=== PATIENT | female | born 1930 | race Caucasian/White ===

== ENCOUNTER → 2017-04-16 | Outpatient (CLI) | payer MEDICARE ==
[~2017-04-16] MED LIST: AMLO5 PO; AMOCLA875 PO; ASCO500 PO; ASPI325 PO; ASPI81CH PO; ASPI81EC PO; CALCIT950 PO; CHOL10002 PO; CLOP75 PO; DOXY100 PO; DULO30 PO; ERGO50000 PO; FISH1000 PO; GABA100 PO; GABA300 PO; GABA600 PO; LEVSOD75 PO; LEVSOD88 PO; LOPE2C PO; MAGCHL64ER PO; METO50 PO; METO50ER PO; METPRE4DP PO; MYRBETRIQ25 MG PO; Ocuvite Softge1 EAC1 PO; PANT40 PO; PROBIOTIC1 EAC1 PO; Pulmicort Flex90 MCG IH; SIMV40 PO; UBID10 PO; VAGIFEM10 MCG VG; Ventolin Soln3 ML INH; Zofran4 MG PO
[2017-04-16 12:35] LABS: BASOPHILS ABSOLUTE AUTO 0.09 K/mm3 (0.00-0.23); BASOPHILS PERCENT AUTO 1 % (0-2); EOSINOPHILS ABSOLUTE AUTO 3.66 K/mm3 (0.00-0.68); EOSINOPHILS PERCENT AUTO 22 % (0-6); Hematocrit 43.7 % (33.0-51.0); Hemoglobin 14.1 g/dL (11.5-16.0); IMMATURE GRAN ABSOLUTE AUTO 0.08 K/mm3 (0.00-0.10); IMMATURE GRAN PERCENT AUTO 1 % (0-1); LYMPHOCYTES ABSOLUTE AUTO 2.27 K/mm3 (0.84-5.20); LYMPHOCYTES PERCENT AUTO 13 % (21-46); MONOCYTES ABSOLUTE AUTO 1.48 K/mm3 (0.16-1.47); MONOCYTES PERCENT AUTO 9 % (4-13); Mean Corpuscular HGB 28.1 pg (26.0-34.0); Mean Corpuscular HGB Conc 32.3 g/dL (31.5-36.5); Mean Corpuscular Volume 87 fL (80-100); Mean Platelet Volume 9.7 fL (9.1-12.4); NEUTROPHILS PERCENT AUTO 55 % (41-73); Platelet Count 363 K/mm3 (150-400); RDW Standard Deviation 43.8 fL (35.1-46.3); Red Blood Cell Count 5.02 M/mm3 (3.80-5.20); White Blood Cell Count 16.88 K/mm3 (4.00-11.30)
[2017-04-16 12:53] LABS: Alanine Aminotransfer (ALT/SGP 28 U/L (12-78); Albumin, Blood 3.9 g/dL (3.4-5.0); Albumin/Globulin Ratio 1.2 (0.8-1.8); Alk Phos 90 U/L (40-126); Anion Gap 10 mmol/L (6-16); Aspartate Aminotrans (AST/SGOT 27 U/L (12-37); Bilirubin, Total 0.9 mg/dL (0.1-1.0); Blood Urea Nitrogen 15 mg/dL (8-24); Bun/Creatinine Ratio 17.2 (12.0-20.0); CO2, Blood 32 mmol/L (21-32); Calcium, Blood 8.9 mg/dL (8.5-10.1); Chloride, Blood 97 mmol/L (98-108); Creatinine, Blood 0.87 mg/dL (0.40-1.00); Free Thyroxine 1.58 ng/dL (0.70-1.60); Globulin, Blood 3.2 g/dL (2.2-4.0); Glomerular Filtration Rate >60 (60-); Glucose, Blood 110 mg/dL (70-99); Potassium, Blood 3.4 mmol/L (3.5-5.5); Sodium, Blood 139 mmol/L (136-145); Thyroid Stimulating Hormone 4.944 uIU/mL (0.360-4.800); Total Protein, Blood 7.1 g/dL (6.4-8.2)
== END | disposition home or self-care (01) ==
LOC: LAB SHORT 12:27
PROVIDERS: General Practice
DX: R53.81 Other malaise (principal)
CPT/HCPCS: 80053; 83880; 84439; 84443; 85025

== ENCOUNTER → 2017-04-18 | Outpatient (CLI) | payer MEDICARE ==
[2017-04-18 11:18] LABS: BASOPHILS ABSOLUTE AUTO 0.07 K/mm3 (0.00-0.23); BASOPHILS PERCENT AUTO 1 % (0-2); EOSINOPHILS ABSOLUTE AUTO 3.31 K/mm3 (0.00-0.68); EOSINOPHILS PERCENT AUTO 31 % (0-6); Hematocrit 41.1 % (33.0-51.0); Hemoglobin 13.5 g/dL (11.5-16.0); IMMATURE GRAN ABSOLUTE AUTO 0.04 K/mm3 (0.00-0.10); IMMATURE GRAN PERCENT AUTO 0 % (0-1); LYMPHOCYTES ABSOLUTE AUTO 2.03 K/mm3 (0.84-5.20); LYMPHOCYTES PERCENT AUTO 19 % (21-46); MONOCYTES ABSOLUTE AUTO 1.22 K/mm3 (0.16-1.47); MONOCYTES PERCENT AUTO 11 % (4-13); Mean Corpuscular HGB 28.5 pg (26.0-34.0); Mean Corpuscular HGB Conc 32.8 g/dL (31.5-36.5); Mean Corpuscular Volume 87 fL (80-100); Mean Platelet Volume 9.2 fL (9.1-12.4); NEUTROPHILS ABSOLUTE AUTO 4.15 K/mm3 (1.96-9.15); NEUTROPHILS PERCENT AUTO 38 % (41-73); Platelet Count 333 K/mm3 (150-400); RDW Coefficient Variation 13.9 % (11.7-14.2); RDW Standard Deviation 43.8 fL (35.1-46.3); Red Blood Cell Count 4.73 M/mm3 (3.80-5.20); White Blood Cell Count 10.82 K/mm3 (4.00-11.30)
[2017-04-18 11:31] LABS: Alanine Aminotransfer (ALT/SGP 28 U/L (12-78); Albumin, Blood 3.6 g/dL (3.4-5.0); Alk Phos 81 U/L (40-126); Anion Gap 10 mmol/L (6-16); Aspartate Aminotrans (AST/SGOT 27 U/L (12-37); Blood Urea Nitrogen 14 mg/dL (8-24); Bun/Creatinine Ratio 17.1 (12.0-20.0); CO2, Blood 31 mmol/L (21-32); Chloride, Blood 97 mmol/L (98-108); Creatinine, Blood 0.82 mg/dL (0.40-1.00); Globulin, Blood 3.5 g/dL (2.2-4.0); Glomerular Filtration Rate >60 (60-); Glucose, Blood 94 mg/dL (70-99); Potassium, Blood 3.4 mmol/L (3.5-5.5); Sodium, Blood 138 mmol/L (136-145); Total Protein, Blood 7.1 g/dL (6.4-8.2)
[2017-04-19 08:55] LABS: Antinuclear Antibody Screen Negative (Negative)
== END ==
LOC: LAB SHORT 11:09
PROVIDERS: General Practice
DX: L03.119 Cellulitis of unspecified part of limb (principal); R60.0 Localized edema
CPT/HCPCS: 80053; 85025; 86038; 87070; 87205

== ENCOUNTER → 2017-05-12 | Outpatient (CLI) | payer OTHER | END | disposition home or self-care (01) | LOC: LAB SHORT 09:56 → PLD 09:56 | DX: L30.9 Dermatitis, unspecified (principal) | CPT/HCPCS: 88305 ==

== ENCOUNTER 2018-07-25 15:22 | Inpatient (IN) | payer OTHER ==
[~2018-07-25] VITALS: Ht 162.6 cm; Wt 54.9 kg
[~2018-07-25 15:22] MED LIST changes: -Aspir-Low81 MG PO; -Atarax10 MG PO; -BENEFIBER152 GM PO; -Bentyl20 MG PO; -CETI5 PO; -CYAN500 PO; -CYCL10 PO; -Clobetasol Emol15 GM TOP; -FISH OIL 1,0001 EAC1; -FURO20 PO; -HYDPAM25 PO; -MAGOXI400; -MELO7.5 PO; -NITR.4SL SL; -ONDA4ODT MM; -POTCHL10ER PO; -PROBIOTIC1 EAC4; -Pulmicort Flex90 MCG INH; -Pulmicort0.5 MG/2 M; -ROSU10TA PO; -SPIR25 PO; -TRIA15CR3 TOP; -TYLENOL325 MG PO; -UBID10; -VIBERZI75 MG PO
[2018-07-25] MEDS ORDERED: Clobetasol Emol15 GM TOP (15:41)
[2018-07-25] MEDS ORDERED: CYCL10 PO (15:42)
[2018-07-25] MEDS ORDERED: FURO20 PO (15:42)
[2018-07-25] MEDS ORDERED: Bentyl20 MG PO (15:42)
[2018-07-25] MEDS ORDERED: GABA300 PO (15:43)
[2018-07-25] MEDS ORDERED: ONDA4ODT MM (15:43)
[2018-07-25] MEDS ORDERED: HYDPAM25 PO (15:43)
[2018-07-25] MEDS ORDERED: MELO7.5 PO (15:43)
[2018-07-25] MEDS ORDERED: POTCHL10ER PO (15:44)
[2018-07-25] MEDS ORDERED: Pulmicort0.5 MG/2 M (15:44)
[2018-07-25] MEDS ORDERED: SPIR25 PO (15:44)
[2018-07-25] MEDS ORDERED: TYLENOL325 MG PO (15:45)
[2018-07-25] MEDS ORDERED: TRIA15CR3 TOP (15:45)
[2018-07-25] MEDS ORDERED: FISH OIL 1,0001 EAC1 (15:46)
[2018-07-25] MEDS ORDERED: BENEFIBER152 GM PO (15:46)
[2018-07-25] MEDS ORDERED: CETI5 PO ×2 (15:46→21:44)
[2018-07-25] MEDS ORDERED: VIBERZI75 MG PO ×2 (15:46→21:44)
[2018-07-25] MEDS ORDERED: PROBIOTIC1 EAC4 (15:47)
[2018-07-25] MEDS ORDERED: UBID10 (15:47)
[2018-07-25] MEDS ORDERED: CYAN500 PO (15:47)
[2018-07-25] MEDS ORDERED: MAGOXI400 (15:47)
[2018-07-25] MEDS ORDERED: Aspir-Low81 MG PO (16:07)
[2018-07-25] MEDS ORDERED: PANT40 PO (16:08)
[2018-07-25] MEDS ORDERED: LOPE2C PO (16:10)
[2018-07-25] MEDS ORDERED: Atarax10 MG PO (16:10)
[2018-07-25] MEDS ORDERED: METO50 PO (16:11)
[2018-07-25] MEDS ORDERED: Pulmicort Flex90 MCG INH (16:12)
[2018-07-25 16:17] LABS: International Normalized Ratio 0.97; Prothrombin Time Results 10.3 Sec (9.7-11.5)
[2018-07-26 03:12] LABS: BASOPHILS ABSOLUTE AUTO 0.05 K/mm3 (0.00-0.23); BASOPHILS PERCENT AUTO 1 % (0-2); EOSINOPHILS ABSOLUTE AUTO 0.26 K/mm3 (0.00-0.68); EOSINOPHILS PERCENT AUTO 3 % (0-6); Hemoglobin 10.9 g/dL (11.5-16.0); IMMATURE GRAN ABSOLUTE AUTO 0.04 K/mm3 (0.00-0.10); IMMATURE GRAN PERCENT AUTO 0 % (0-1); LYMPHOCYTES ABSOLUTE AUTO 3.46 K/mm3 (0.84-5.20); LYMPHOCYTES PERCENT AUTO 33 % (21-46); MONOCYTES PERCENT AUTO 15 % (4-13); Mean Corpuscular HGB Conc 31.1 g/dL (31.5-36.5); Mean Platelet Volume 10.8 fL (9.1-12.4); NEUTROPHILS ABSOLUTE AUTO 4.96 K/mm3 (1.96-9.15); NEUTROPHILS PERCENT AUTO 48 % (41-73); Platelet Count 229 K/mm3 (150-400); RDW Coefficient Variation 14.3 % (11.7-14.2); RDW Standard Deviation 45.6 fL (35.1-46.3); Red Blood Cell Count 4.03 M/mm3 (3.80-5.20); White Blood Cell Count 10.37 K/mm3 (4.00-11.30)
[2018-07-26 03:13] LABS: Mean Corpuscular Volume 87 fL (80-100)
[2018-07-26 03:28] LABS: Anion Gap 6 mmol/L (6-16); Blood Urea Nitrogen 13 mg/dL (8-24); Bun/Creatinine Ratio 17.8 (12.0-20.0); CO2, Blood 25 mmol/L (21-32); Chloride, Blood 105 mmol/L (98-108); Creatinine, Blood 0.73 mg/dL (0.40-1.00); Glomerular Filtration Rate >60 (60-); Glucose, Blood 102 mg/dL (70-99); Potassium, Blood 3.7 mmol/L (3.5-5.5); Sodium, Blood 136 mmol/L (136-145)
[2018-07-27 04:12] LABS: BASOPHILS ABSOLUTE AUTO 0.06 K/mm3 (0.00-0.23); BASOPHILS PERCENT AUTO 1 % (0-2); EOSINOPHILS ABSOLUTE AUTO 0.39 K/mm3 (0.00-0.68); EOSINOPHILS PERCENT AUTO 4 % (0-6); Hematocrit 35.4 % (33.0-51.0); Hemoglobin 11.1 g/dL (11.5-16.0); IMMATURE GRAN ABSOLUTE AUTO 0.03 K/mm3 (0.00-0.10); IMMATURE GRAN PERCENT AUTO 0 % (0-1); LYMPHOCYTES ABSOLUTE AUTO 2.81 K/mm3 (0.84-5.20); LYMPHOCYTES PERCENT AUTO 29 % (21-46); MONOCYTES ABSOLUTE AUTO 1.57 K/mm3 (0.16-1.47); MONOCYTES PERCENT AUTO 16 % (4-13); Mean Corpuscular HGB Conc 31.4 g/dL (31.5-36.5); Mean Corpuscular Volume 86 fL (80-100); Mean Platelet Volume 10.4 fL (9.1-12.4); NEUTROPHILS ABSOLUTE AUTO 4.71 K/mm3 (1.96-9.15); NEUTROPHILS PERCENT AUTO 49 % (41-73); Platelet Count 260 K/mm3 (150-400); RDW Coefficient Variation 14.5 % (11.7-14.2); RDW Standard Deviation 45.7 fL (35.1-46.3); Red Blood Cell Count 4.11 M/mm3 (3.80-5.20); White Blood Cell Count 9.57 K/mm3 (4.00-11.30)
[2018-07-27] MEDS ORDERED: ROSU10TA PO (11:58)
[2018-07-27] MEDS ORDERED: NITR.4SL SL (11:59)
[2018-07-27] MEDS ORDERED: CLOP75 PO (12:00)
== END 2018-07-27 13:34 | disposition home or self-care (01) | DRG 281 ==
LOC: ER 15:22 → PCU 18:21
PROVIDERS: Emergency Medicine; ADMIT Student in an Organized Health Care Education/Training Program
DX: I21.4 Non-ST elevation (NSTEMI) myocardial infarction (principal); E87.1 Hypo-osmolality and hyponatremia; N17.9 Acute kidney failure, unspecified; I50.42 Chronic combined systolic (congestive) and diastolic (congestive) heart failure; Z86.73 Personal history of transient ischemic attack (TIA), and cerebral infarction without residual deficits; E78.5 Hyperlipidemia, unspecified; I95.81 Postprocedural hypotension; I48.0 Paroxysmal atrial fibrillation; E03.9 Hypothyroidism, unspecified; G89.29 Other chronic pain; J44.9 Chronic obstructive pulmonary disease, unspecified; I11.0 Hypertensive heart disease with heart failure
CPT/HCPCS: 36415; 71260; 80048; 84484; 85025; 85610; 85730; 93005; 93010; 93306; 94760; 96365-59; 96366-59; 99285-25; J1644; J1650; J7030; Q9967

== ENCOUNTER → 2018-07-25 | Outpatient (CLI) | payer OTHER ==
[~2018-07-25] MED LIST changes: +Aspir-Low81 MG PO; +Atarax10 MG PO; +BENEFIBER152 GM PO; +Bentyl20 MG PO; +CETI5 PO; +CYAN500 PO; +CYCL10 PO; +Clobetasol Emol15 GM TOP; +FISH OIL 1,0001 EAC1; +FURO20 PO; +HYDPAM25 PO; -LEVSOD88 PO; +MAGOXI400; +MELO7.5 PO; +NITR.4SL SL; +ONDA4ODT MM; +POTCHL10ER PO; +PROBIOTIC1 EAC4; +Pulmicort Flex90 MCG INH; +Pulmicort0.5 MG/2 M; +ROSU10TA PO; +SPIR25 PO; +TRIA15CR3 TOP; +TYLENOL325 MG PO; +UBID10; +VIBERZI75 MG PO
[2018-07-25 14:11] LABS: BASOPHILS ABSOLUTE AUTO 0.05 K/mm3 (0.00-0.23); BASOPHILS PERCENT AUTO 0 % (0-2); EOSINOPHILS ABSOLUTE AUTO 0.18 K/mm3 (0.00-0.68); EOSINOPHILS PERCENT AUTO 2 % (0-6); Hematocrit 36.7 % (33.0-51.0); Hemoglobin 11.9 g/dL (11.5-16.0); IMMATURE GRAN ABSOLUTE AUTO 0.04 K/mm3 (0.00-0.10); IMMATURE GRAN PERCENT AUTO 0 % (0-1); LYMPHOCYTES ABSOLUTE AUTO 2.56 K/mm3 (0.84-5.20); LYMPHOCYTES PERCENT AUTO 23 % (21-46); MONOCYTES ABSOLUTE AUTO 1.67 K/mm3 (0.16-1.47); MONOCYTES PERCENT AUTO 15 % (4-13); Mean Corpuscular HGB Conc 32.4 g/dL (31.5-36.5); Mean Corpuscular Volume 83 fL (80-100); Mean Platelet Volume 10.7 fL (9.1-12.4); NEUTROPHILS ABSOLUTE AUTO 6.88 K/mm3 (1.96-9.15); NEUTROPHILS PERCENT AUTO 60 % (41-73); Platelet Count 255 K/mm3 (150-400); RDW Coefficient Variation 14.4 % (11.7-14.2); RDW Standard Deviation 43.5 fL (35.1-46.3); Red Blood Cell Count 4.41 M/mm3 (3.80-5.20); White Blood Cell Count 11.38 K/mm3 (4.00-11.30)
[2018-07-25 14:38] LABS: Albumin, Blood 3.2 g/dL (3.4-5.0); Albumin/Globulin Ratio 0.9 (0.8-1.8); Bilirubin, Total 1.4 mg/dL (0.1-1.0); Bun/Creatinine Ratio 16.3 (12.0-20.0); Calcium, Blood 8.5 mg/dL (8.5-10.1); Creatinine, Blood 0.92 mg/dL (0.40-1.00); Globulin, Blood 3.5 g/dL (2.2-4.0); Total Protein, Blood 6.7 g/dL (6.4-8.2)
[2018-07-25 15:16] LABS: Troponin I 6.912 ng/mL (0.000-0.040)
== END ==
LOC: LAB SHORT 14:04 → LAB EV 14:04
PROVIDERS: Emergency Medicine
DX: R07.9 Chest pain, unspecified (principal)
CPT/HCPCS: 80053; 83880; 84484; 85025

== ENCOUNTER 2018-09-16 19:18 | Emergency (ER) | payer OTHER ==
[~2018-09-16] VITALS: Ht 162.6 cm; Wt 59.0 kg
[~2018-09-16 19:18] MED LIST changes: +Aspir-Low81 MG PO; +Atarax10 MG PO; +BENEFIBER152 GM PO; +Bentyl20 MG PO; +CETI5 PO; +CYAN500 PO; +CYCL10 PO; +Clobetasol Emol15 GM TOP; +FISH OIL 1,0001 EAC1; +FURO20 PO; +HYDPAM25 PO; +MAGOXI400; +MELO7.5 PO; +NITR.4SL SL; +ONDA4ODT MM; +POTCHL10ER PO; +PROBIOTIC1 EAC4; +Pulmicort Flex90 MCG INH; +Pulmicort0.5 MG/2 M; +ROSU10TA PO; +SPIR25 PO; +TRIA15CR3 TOP; +TYLENOL325 MG PO; +UBID10; +VIBERZI75 MG PO
[2018-09-16] MEDS ORDERED: HYDCHL12.5 PO (19:50)
[2018-09-16 19:57] LABS: BASOPHILS ABSOLUTE AUTO 0.04 K/mm3 (0.00-0.23); BASOPHILS PERCENT AUTO 1 % (0-2); EOSINOPHILS ABSOLUTE AUTO 0.32 K/mm3 (0.00-0.68); EOSINOPHILS PERCENT AUTO 4 % (0-6); Hematocrit 39.4 % (33.0-51.0); Hemoglobin 12.2 g/dL (11.5-16.0); IMMATURE GRAN ABSOLUTE AUTO 0.02 K/mm3 (0.00-0.10); IMMATURE GRAN PERCENT AUTO 0 % (0-1); LYMPHOCYTES ABSOLUTE AUTO 2.69 K/mm3 (0.84-5.20); LYMPHOCYTES PERCENT AUTO 32 % (21-46); MONOCYTES ABSOLUTE AUTO 1.11 K/mm3 (0.16-1.47); MONOCYTES PERCENT AUTO 13 % (4-13); Mean Corpuscular HGB 26.9 pg (26.0-34.0); Mean Corpuscular Volume 87 fL (80-100); Mean Platelet Volume 10.2 fL (9.1-12.4); NEUTROPHILS ABSOLUTE AUTO 4.32 K/mm3 (1.96-9.15); NEUTROPHILS PERCENT AUTO 51 % (41-73); Platelet Count 247 K/mm3 (150-400); RDW Coefficient Variation 13.9 % (11.7-14.2); RDW Standard Deviation 44.1 fL (35.1-46.3); Red Blood Cell Count 4.54 M/mm3 (3.80-5.20)
[2018-09-16 20:22] LABS: Alanine Aminotransfer (ALT/SGP 34 U/L (12-78); Albumin, Blood 3.4 g/dL (3.4-5.0); Alk Phos 118 U/L (50-136); Anion Gap 6 mmol/L (6-16); Aspartate Aminotrans (AST/SGOT 25 U/L (12-37); Bilirubin, Total 0.7 mg/dL (0.1-1.0); Blood Urea Nitrogen 20 mg/dL (8-24); Bun/Creatinine Ratio 21.7 (12.0-20.0); CO2, Blood 27 mmol/L (21-32); Calcium, Blood 8.7 mg/dL (8.5-10.1); Chloride, Blood 103 mmol/L (98-108); Creatinine, Blood 0.92 mg/dL (0.40-1.00); Free Thyroxine 1.31 ng/dL (0.70-1.60); Globulin, Blood 3.3 g/dL (2.2-4.0); Glomerular Filtration Rate >60 (60-); Glucose, Blood 102 mg/dL (70-99); Magnesium, Blood 2.3 mg/dL (1.6-2.4); Potassium, Blood 4.1 mmol/L (3.5-5.5); Sodium, Blood 136 mmol/L (136-145); Total Protein, Blood 6.7 g/dL (6.4-8.2); Troponin I <0.015 ng/mL (0.000-0.040)
== END 2018-09-16 21:00 | disposition home or self-care (01) ==
LOC: ER 19:18
PROVIDERS: Emergency Medicine
DX: R00.2 Palpitations (principal); Z88.1 Allergy status to other antibiotic agents; Z88.8 Allergy status to other drugs, medicaments and biological substances; Z79.899 Other long term (current) drug therapy; Z79.82 Long term (current) use of aspirin; I10 Essential (primary) hypertension; E78.5 Hyperlipidemia, unspecified; E03.9 Hypothyroidism, unspecified; I48.91 Unspecified atrial fibrillation; I25.2 Old myocardial infarction; Z86.73 Personal history of transient ischemic attack (TIA), and cerebral infarction without residual deficits; J44.9 Chronic obstructive pulmonary disease, unspecified
CPT/HCPCS: 36415; 71046; 80053; 83735; 84439; 84443; 84484; 85025; 93005; 93010; 99285-25

== ENCOUNTER → 2019-02-17 | Outpatient (CLI) | payer OTHER ==
[~2019-02-17] MED LIST changes: +HYDCHL12.5 PO
[2019-02-17 14:23] LABS: Bilirubin, Urine Neg (Neg); Blood, Urine Neg (Neg); Glucose Qualitative, Urine Neg (Neg); Ketones, Urine Neg (Neg); Leukocyte Esterase, Urine Neg (Neg); Nitrite, Urine Neg (Neg); Protein, Urine Neg (Neg); Urobilinogen, Urine NORM (Normal)
[2019-02-17 14:40] LABS: Appearance, Urine Clear (Clear); Color, Urine Yellow (P-Yellow)
== END ==
LOC: LAB SHORT 12:05 → LAB UCHC 12:05
PROVIDERS: Hospitalist
DX: R30.9 Painful micturition, unspecified (principal)
CPT/HCPCS: 81003

== ENCOUNTER → 2019-06-28 | Outpatient (CLI) | payer OTHER ==
[2019-06-28 13:22] LABS: BASOPHILS ABSOLUTE AUTO 0.05 K/mm3 (0.00-0.23); BASOPHILS PERCENT AUTO 1 % (0-2); EOSINOPHILS ABSOLUTE AUTO 0.35 K/mm3 (0.00-0.68); EOSINOPHILS PERCENT AUTO 4 % (0-6); Hematocrit 41.6 % (33.0-51.0); IMMATURE GRAN ABSOLUTE AUTO 0.08 K/mm3 (0.00-0.10); IMMATURE GRAN PERCENT AUTO 1 % (0-1); LYMPHOCYTES ABSOLUTE AUTO 2.26 K/mm3 (0.84-5.20); LYMPHOCYTES PERCENT AUTO 28 % (21-46); MONOCYTES ABSOLUTE AUTO 1.01 K/mm3 (0.16-1.47); MONOCYTES PERCENT AUTO 13 % (4-13); Mean Corpuscular HGB 26.1 pg (26.0-34.0); Mean Corpuscular HGB Conc 31.3 g/dL (31.5-36.5); Mean Corpuscular Volume 84 fL (80-100); Mean Platelet Volume 10.1 fL (9.1-12.4); NEUTROPHILS ABSOLUTE AUTO 4.26 K/mm3 (1.96-9.15); NEUTROPHILS PERCENT AUTO 53 % (41-73); Platelet Count 272 K/mm3 (150-400); RDW Coefficient Variation 13.9 % (11.7-14.2); RDW Standard Deviation 42.4 fL (35.1-46.3); Red Blood Cell Count 4.98 M/mm3 (3.80-5.20); White Blood Cell Count 8.01 K/mm3 (4.00-11.30)
[2019-06-28 13:25] LABS: Anion Gap 9 mmol/L (6-16); Blood Urea Nitrogen 15 mg/dL (8-24); Bun/Creatinine Ratio 17.9 (12.0-20.0); CO2, Blood 27 mmol/L (21-32); Calcium, Blood 8.3 mg/dL (8.5-10.1); Chloride, Blood 100 mmol/L (98-108); Creatinine, Blood 0.84 mg/dL (0.40-1.00); Glomerular Filtration Rate >60 (60-); Glucose, Blood 104 mg/dL (70-99); Potassium, Blood 4.2 mmol/L (3.5-5.5); Sodium, Blood 136 mmol/L (136-145)
== END | disposition home or self-care (01) ==
LOC: LAB SHORT 13:14 → LAB EV 13:14
PROVIDERS: Physician Assistant Surgical
DX: I95.9 Hypotension, unspecified (principal)
CPT/HCPCS: 80048; 85025

== ENCOUNTER → 2019-08-14 | Outpatient (CLI) | payer OTHER ==
[2019-08-14 16:22] LABS: Source, Urine Clean Catch
[2019-08-14 18:53] LABS: Bilirubin, Urine Neg (Neg); Blood, Urine 1+ (Neg); Glucose Qualitative, Urine Neg (Neg); Ketones, Urine Neg (Neg); Leukocyte Esterase, Urine Neg (Neg); Nitrite, Urine Neg (Neg); Protein, Urine Neg (Neg); Specific Gravity, Urine 1.005 (1.003-1.022); Urobilinogen, Urine NORM (Normal)
[2019-08-14 19:06] LABS: Appearance, Urine Clear (Clear); Color, Urine Yellow (P-Yellow)
[2019-08-14 19:08] LABS: Bacteria Few /hpf; Red Blood Cells, Urine 0-2 /hpf (0-2); Squamous Epithelial Cells Few /hpf (Few); White Blood Cells, Urine 0-2 /hpf (0-5)
== END | disposition home or self-care (01) ==
LOC: LAB SHORT 16:21 → LAB 16:21 → EDSTATUS 08-10 09:00 → LAB FUT 08-10 09:00
PROVIDERS: Family Medicine
DX: R35.0 Frequency of micturition (principal)
CPT/HCPCS: 81001

== ENCOUNTER → 2020-06-06 | Outpatient (CLI) | payer OTHER ==
[~2020-06-06] MED LIST changes: +ACET500 PO; +ARTIFICIAL TEAR15 M2 LEFTEYE; +COQ-10100 MG PO; -CYAN500 PO; -CYCL10 PO; +CYCLOBENZAPRINE5 MG PO; +Crestor40 MG PO; +FAMO20 PO; +FERSU300 PO; +FISH OIL 1,2001 EAC7 PO; +LEVSOD88 PO; +METO25ER PO; +Magnesium250 MG PO; +PRESERVISION A1 EAC1 PO; +PROBIOTIC1 EA13 PO; +QVAR REDIHALE10.6 G3 INH; -ROSU10TA PO; -TYLENOL325 MG PO; +Toviaz4 MG PO; +VITAMIN D31000 UNI1 PO; +Vitamin B-12100 MCG PO; +XARELTO20 MG PO; +[UNRECOGNIZED DRUG - CODE] TOP
[2020-06-06 15:14] LABS: BASOPHILS ABSOLUTE AUTO 0.04 K/mm3 (0.00-0.23); BASOPHILS PERCENT AUTO 1 % (0-2); EOSINOPHILS ABSOLUTE AUTO 0.35 K/mm3 (0.00-0.68); EOSINOPHILS PERCENT AUTO 5 % (0-6); Hemoglobin 12.7 g/dL (11.5-16.0); IMMATURE GRAN ABSOLUTE AUTO 0.03 K/mm3 (0.00-0.10); IMMATURE GRAN PERCENT AUTO 1 % (0-1); LYMPHOCYTES ABSOLUTE AUTO 2.08 K/mm3 (0.84-5.20); LYMPHOCYTES PERCENT AUTO 32 % (21-46); MONOCYTES ABSOLUTE AUTO 1.12 K/mm3 (0.16-1.47); MONOCYTES PERCENT AUTO 17 % (4-13); Mean Corpuscular HGB 25.9 pg (26.0-34.0); Mean Corpuscular Volume 84 fL (80-100); Mean Platelet Volume 9.9 fL (9.1-12.4); NEUTROPHILS ABSOLUTE AUTO 2.82 K/mm3 (1.96-9.15); NEUTROPHILS PERCENT AUTO 44 % (41-73); Platelet Count 271 K/mm3 (150-400); RDW Coefficient Variation 14.5 % (11.7-14.2); RDW Standard Deviation 44.2 fL (35.1-46.3); White Blood Cell Count 6.44 K/mm3 (4.00-11.30)
[2020-06-06 15:32] LABS: Alanine Aminotransfer (ALT/SGP 34 U/L (12-78); Albumin, Blood 3.3 g/dL (3.4-5.0); Albumin/Globulin Ratio 0.9 (0.8-1.8); Alk Phos 111 U/L (40-126); Anion Gap 8 mmol/L (6-16); Aspartate Aminotrans (AST/SGOT 30 U/L (12-37); Bilirubin, Total 0.6 mg/dL (0.1-1.0); Blood Urea Nitrogen 15 mg/dL (8-24); Bun/Creatinine Ratio 15.5 (12.0-20.0); CO2, Blood 27 mmol/L (21-32); Calcium, Blood 8.9 mg/dL (8.5-10.1); Chloride, Blood 97 mmol/L (98-108); Creatinine, Blood 0.97 mg/dL (0.40-1.00); Globulin, Blood 3.5 g/dL (2.2-4.0); Glomerular Filtration Rate 54 (60-); Glucose, Blood 95 mg/dL (70-99); Potassium, Blood 4.4 mmol/L (3.5-5.5); Sodium, Blood 132 mmol/L (136-145); Thyroid Stimulating Hormone 3.602 uIU/mL (0.360-4.800); Total Protein, Blood 6.8 g/dL (6.4-8.2)
[2020-06-06 15:55] LABS: Troponin I <0.017 ng/mL (0.000-0.040)
== END ==
LOC: LAB SHORT 15:09 → LAB 15:09
PROVIDERS: Physician Assistant
DX: I48.91 Unspecified atrial fibrillation (principal); R53.83 Other fatigue
CPT/HCPCS: 80053; 83880; 84443; 84484; 85025; 87086

== ENCOUNTER 2020-10-17 17:04 | Emergency (ER) | payer OTHER ==
[~2020-10-17] VITALS: Ht 157.5 cm; Wt 59.0 kg
[~2020-10-17 17:04] MED LIST changes: -ARTIFICIAL TEAR15 M2 LEFTEYE; -COQ-10100 MG PO; -Clobetasol Emol15 GM TOP; -Crestor40 MG PO; -FAMO20 PO; -FERSU300 PO; -FISH OIL 1,2001 EAC7 PO; -LEVSOD88 PO; -METO25ER PO; -Magnesium250 MG PO; -PRESERVISION A1 EAC1 PO; -PROBIOTIC1 EA13 PO; -QVAR REDIHALE10.6 G3 INH; -Toviaz4 MG PO; -VITAMIN D31000 UNI1 PO; -Vitamin B-12100 MCG PO; -XARELTO20 MG PO; -[UNRECOGNIZED DRUG - CODE] TOP
[2020-10-18] MEDS ORDERED: LEVSOD88 PO (20:04)
[2020-10-18] MEDS ORDERED: METO25ER PO (20:08)
[2020-10-18] MEDS ORDERED: Crestor40 MG PO (20:08)
[2020-10-18] MEDS ORDERED: Vitamin B-12100 MCG PO (20:10)
[2020-10-18] MEDS ORDERED: FERSU300 PO (20:11)
[2020-10-18] MEDS ORDERED: XARELTO20 MG PO (20:11)
[2020-10-18] MEDS ORDERED: Toviaz4 MG PO (20:12)
[2020-10-18] MEDS ORDERED: Clobetasol Emol15 GM TOP (21:26)
[2020-10-18] MEDS ORDERED: FISH OIL 1,2001 EAC7 PO (21:29)
[2020-10-18] MEDS ORDERED: VITAMIN D31000 UNI1 PO (21:32)
[2020-10-18] MEDS ORDERED: PRESERVISION A1 EAC1 PO (21:33)
[2020-10-18] MEDS ORDERED: Magnesium250 MG PO (21:33)
[2020-10-18] MEDS ORDERED: COQ-10100 MG PO (21:35)
[2020-10-18] MEDS ORDERED: PROBIOTIC1 EA13 PO (21:35)
[2020-10-18] MEDS ORDERED: [UNRECOGNIZED DRUG - CODE] TOP (21:35)
[2020-10-18] MEDS ORDERED: QVAR REDIHALE10.6 G3 INH (21:37)
[2020-10-18] MEDS ORDERED: ARTIFICIAL TEAR15 M2 LEFTEYE (21:38)
[2020-10-18] MEDS ORDERED: FAMO20 PO (21:41)
== END 2020-10-17 20:05 | disposition left against medical advice (07) ==
LOC: ER 17:04
DX: K92.2 Gastrointestinal hemorrhage, unspecified (principal); Z79.899 Other long term (current) drug therapy; Z79.82 Long term (current) use of aspirin; Z79.02 Long term (current) use of antithrombotics/antiplatelets
CPT/HCPCS: 86850; 86900; 86901; 99283

== ENCOUNTER → 2020-10-17 | Outpatient (CLI) | payer OTHER ==
[2020-10-17 15:29] LABS: Hematocrit 28.1 % (33.0-51.0); Mean Corpuscular HGB 27.7 pg (26.0-34.0); Mean Corpuscular Volume 87 fL (80-100); Mean Platelet Volume 9.5 fL (9.1-12.4); Platelet Count 289 K/mm3 (150-400); RDW Coefficient Variation 17.8 % (11.7-14.2); RDW Standard Deviation 54.7 fL (35.1-46.3); Red Blood Cell Count 3.25 M/mm3 (3.80-5.20); White Blood Cell Count 2.76 K/mm3 (4.00-11.30)
[2020-10-17 15:39] LABS: Alanine Aminotransfer (ALT/SGP 19 U/L (12-78); Albumin/Globulin Ratio 0.9 (0.8-1.8); Alk Phos 111 U/L (40-126); Anion Gap 4 mmol/L (6-16); Aspartate Aminotrans (AST/SGOT 17 U/L (12-37); Bilirubin, Total 0.6 mg/dL (0.1-1.0); Blood Urea Nitrogen 17 mg/dL (8-24); Bun/Creatinine Ratio 20.5 (12.0-20.0); CO2, Blood 28 mmol/L (21-32); Calcium, Blood 8.9 mg/dL (8.5-10.1); Chloride, Blood 97 mmol/L (98-108); Creatinine, Blood 0.83 mg/dL (0.40-1.00); Globulin, Blood 3.5 g/dL (2.2-4.0); Glomerular Filtration Rate >60 (60-); Glucose, Blood 95 mg/dL (70-99); Potassium, Blood 4.2 mmol/L (3.5-5.5); Sodium, Blood 129 mmol/L (136-145); Total Protein, Blood 6.5 g/dL (6.4-8.2)
[2020-10-17 15:45] LABS: BAND PERCENT MAN 1 % (0-8); BASOPHILS PERCENT MAN 1 % (0-2); EOSINOPHILS PERCENT MAN 5 % (0-6); METAMYELOCYTE PERCENT MAN 2 % (0-0); MONOCYTES PERCENT MAN 28 % (4-13); SEG NEUTROPHILS PERCENT MAN 5 % (41-73); TOTAL CELLS COUNTED 100
[2020-10-17 15:48] LABS: LYMPHOCYTES PERCENT MAN 58 % (21-46)
[2020-10-17 16:06] LABS: Thyroid Stimulating Hormone 4.726 uIU/mL (0.360-4.800)
== END | disposition home or self-care (01) ==
LOC: LAB SHORT 15:25
PROVIDERS: Physician Assistant
DX: I95.1 Orthostatic hypotension (principal); E03.9 Hypothyroidism, unspecified; R31.9 Hematuria, unspecified
CPT/HCPCS: 80053; 84443; 85025; 87077; 87086; 87186

== ENCOUNTER 2020-10-18 16:40 | Observation (INO) | payer OTHER ==
[~2020-10-18] VITALS: Ht 157.5 cm; Wt 58.8 kg
[2020-10-18 17:44] LABS: BASOPHILS ABSOLUTE AUTO 0.03 K/mm3 (0.00-0.23); BASOPHILS PERCENT AUTO 1 % (0-2); EOSINOPHILS ABSOLUTE AUTO 0.21 K/mm3 (0.00-0.68); EOSINOPHILS PERCENT AUTO 8 % (0-6); Hematocrit 27.2 % (33.0-51.0); Hemoglobin 8.5 g/dL (11.5-16.0); IMMATURE GRAN PERCENT AUTO 0 % (0-1); LYMPHOCYTES ABSOLUTE AUTO 1.46 K/mm3 (0.84-5.20); LYMPHOCYTES PERCENT AUTO 53 % (21-46); MONOCYTES ABSOLUTE AUTO 0.89 K/mm3 (0.16-1.47); MONOCYTES PERCENT AUTO 32 % (4-13); Mean Corpuscular HGB 27.6 pg (26.0-34.0); Mean Corpuscular HGB Conc 31.3 g/dL (31.5-36.5); Mean Corpuscular Volume 88 fL (80-100); Mean Platelet Volume 9.9 fL (9.1-12.4); NEUTROPHILS ABSOLUTE AUTO 0.19 K/mm3 (1.96-9.15); NEUTROPHILS PERCENT AUTO 7 % (41-73); Platelet Count 296 K/mm3 (150-400); RDW Coefficient Variation 18.3 % (11.7-14.2); RDW Standard Deviation 57.1 fL (35.1-46.3); Red Blood Cell Count 3.08 M/mm3 (3.80-5.20); White Blood Cell Count 2.78 K/mm3 (4.00-11.30)
[2020-10-18 17:51] LABS: Alanine Aminotransfer (ALT/SGP 19 U/L (12-78); Albumin, Blood 2.9 g/dL (3.4-5.0); Albumin/Globulin Ratio 0.8 (0.8-1.8); Alk Phos 123 U/L (50-136); Anion Gap 6 mmol/L (6-16); Aspartate Aminotrans (AST/SGOT 20 U/L (12-37); Bilirubin, Total 0.5 mg/dL (0.1-1.0); Blood Urea Nitrogen 16 mg/dL (8-24); Bun/Creatinine Ratio 19.7 (12.0-20.0); CO2, Blood 26 mmol/L (21-32); Calcium, Blood 8.8 mg/dL (8.5-10.1); Chloride, Blood 102 mmol/L (98-108); Creatinine, Blood 0.81 mg/dL (0.40-1.00); Globulin, Blood 3.5 g/dL (2.2-4.0); Glomerular Filtration Rate >60 (60-); Glucose, Blood 106 mg/dL (70-99); Potassium, Blood 4.2 mmol/L (3.5-5.5); Sodium, Blood 134 mmol/L (136-145); Total Protein, Blood 6.4 g/dL (6.4-8.2)
[2020-10-18 18:03] LABS: Percent Saturation 14.2 % (15.0-50.0)
[2020-10-18] MEDS ORDERED: LEVSOD88 PO (20:04)
[2020-10-18] MEDS ORDERED: Crestor40 MG PO (20:08)
[2020-10-18] MEDS ORDERED: METO25ER PO (20:08)
[2020-10-18] MEDS ORDERED: Vitamin B-12100 MCG PO (20:10)
[2020-10-18] MEDS ORDERED: XARELTO20 MG PO (20:11)
[2020-10-18] MEDS ORDERED: FERSU300 PO (20:11)
[2020-10-18] MEDS ORDERED: Toviaz4 MG PO (20:12)
[2020-10-18 20:36] LABS: Source, Urine Clean Catch
[2020-10-18 20:42] LABS: Appearance, Urine Clear (Clear); Bilirubin, Urine Neg (Neg); Blood, Urine 4+ (Neg); Color, Urine Yellow (P-Yellow); Glucose Qualitative, Urine Neg (Neg); Ketones, Urine Neg (Neg); Leukocyte Esterase, Urine Neg (Neg); Nitrite, Urine Neg (Neg); Protein, Urine 2+ (Neg); Specific Gravity, Urine 1.015 (1.003-1.022); Urobilinogen, Urine NORM (Normal)
[2020-10-18 20:55] LABS: Squamous Epithelial Cells Few /hpf (Few); White Blood Cells, Urine 0-2 /hpf (0-5)
[2020-10-18 20:56] LABS: Bacteria Few /hpf; Granular Casts 0-2 /lpf (0); Mucus Light (0-Heavy); Yeast/Fungi Urine Few /hpf
[2020-10-18] MEDS ORDERED: Clobetasol Emol15 GM TOP (21:26)
[2020-10-18] MEDS ORDERED: FISH OIL 1,2001 EAC7 PO (21:29)
[2020-10-18] MEDS ORDERED: VITAMIN D31000 UNI1 PO (21:32)
[2020-10-18] MEDS ORDERED: PRESERVISION A1 EAC1 PO (21:33)
[2020-10-18] MEDS ORDERED: Magnesium250 MG PO (21:33)
[2020-10-18] MEDS ORDERED: COQ-10100 MG PO (21:35)
[2020-10-18] MEDS ORDERED: [UNRECOGNIZED DRUG - CODE] TOP (21:35)
[2020-10-18] MEDS ORDERED: PROBIOTIC1 EA13 PO (21:35)
[2020-10-18] MEDS ORDERED: QVAR REDIHALE10.6 G3 INH (21:37)
[2020-10-18] MEDS ORDERED: ARTIFICIAL TEAR15 M2 LEFTEYE (21:38)
[2020-10-18] MEDS ORDERED: FAMO20 PO (21:41)
[2020-10-18 22:07] LABS: Troponin I <0.015 ng/mL (0.000-0.040)
[2020-10-18 22:32] LABS: IMMATURE RETIC FRACTION 14.1 % (2.3-16.0); RETIC HGB EQUIVALENT 32.4 pg (28.20-36.60); RETICULOCYTE ABSOLUTE 0.0423 M/mm3 (0.0200-0.1100); RETICULOCYTE COUNT PERCENT 1.43 % (0.50-2.50)
[2020-10-18 22:54] LABS: Percent Saturation 14.5 % (15.0-50.0)
[2020-10-19 01:14] LABS: BASOPHILS ABSOLUTE AUTO 0.04 K/mm3 (0.00-0.23); BASOPHILS PERCENT AUTO 1 % (0-2); EOSINOPHILS ABSOLUTE AUTO 0.19 K/mm3 (0.00-0.68); EOSINOPHILS PERCENT AUTO 7 % (0-6); Hematocrit 28.6 % (33.0-51.0); Hemoglobin 9.4 g/dL (11.5-16.0); IMMATURE GRAN ABSOLUTE AUTO 0.06 K/mm3 (0.00-0.10); IMMATURE GRAN PERCENT AUTO 2 % (0-1); LYMPHOCYTES ABSOLUTE AUTO 1.65 K/mm3 (0.84-5.20); LYMPHOCYTES PERCENT AUTO 59 % (21-46); MONOCYTES ABSOLUTE AUTO 0.81 K/mm3 (0.16-1.47); MONOCYTES PERCENT AUTO 29 % (4-13); Mean Corpuscular HGB 28.8 pg (26.0-34.0); Mean Corpuscular HGB Conc 32.9 g/dL (31.5-36.5); Mean Corpuscular Volume 88 fL (80-100); Mean Platelet Volume 8.8 fL (9.1-12.4); NEUTROPHILS ABSOLUTE AUTO 0.06 K/mm3 (1.96-9.15); NEUTROPHILS PERCENT AUTO 2 % (41-73); Platelet Count 216 K/mm3 (150-400); RDW Coefficient Variation 16.4 % (11.7-14.2); RDW Standard Deviation 50.3 fL (35.1-46.3); Red Blood Cell Count 3.26 M/mm3 (3.80-5.20); White Blood Cell Count 2.81 K/mm3 (4.00-11.30)
[2020-10-19 01:34] LABS: Alanine Aminotransfer (ALT/SGP 15 U/L (12-78); Albumin, Blood 2.6 g/dL (3.4-5.0); Albumin/Globulin Ratio 0.9 (0.8-1.8); Alk Phos 94 U/L (50-136); Anion Gap 6 mmol/L (6-16); Aspartate Aminotrans (AST/SGOT 11 U/L (12-37); Blood Urea Nitrogen 13 mg/dL (8-24); Bun/Creatinine Ratio 18.7 (12.0-20.0); CO2, Blood 26 mmol/L (21-32); Calcium, Blood 7.9 mg/dL (8.5-10.1); Chloride, Blood 105 mmol/L (98-108); Globulin, Blood 2.9 g/dL (2.2-4.0); Glomerular Filtration Rate >60 (60-); Glucose, Blood 82 mg/dL (70-99); Potassium, Blood 3.8 mmol/L (3.5-5.5); Sodium, Blood 137 mmol/L (136-145); Total Protein, Blood 5.5 g/dL (6.4-8.2)
--- NOTE | 2020-10-19 04:39 | NUR ---
SHIFT SUMMARY NER ER ADMIT THIS SHIFT (2236), NO ACUTE CHANGES SINCE ASSUMING CARE, 1U PRBC'S STARTED IN ER- COMPLETED ON FLOOR @ 0029, A&O, NO C/O ANY KIND, SLEPT T/O THE NIGHT & SLEEPING AT THIS TIME, CALL LIGHT IN REACH, BED ALARM ACTIVE, WILL CONT TO MONITOR UNTIL REPORT GIVEN TO DAY RN.
[2020-10-19 09:35] LABS: Hematocrit 31.5 % (33.0-51.0); Hemoglobin 10.4 g/dL (11.5-16.0)
--- NOTE | 2020-10-19 17:26 | NUR ---
PT IS A/OX4, PLEASANT AND COOPERATIVE, THE PT IS UP WITH MODERATE ASSIST TO THE BSC, THE PT APPEARS TO BE BREATHING EASILY ON RA AT THIS TIME, THE PT DENIES ANY PAIN AT THIS TIME, REPORTS FEELING WEAKER THAN NORMAL, HOWEVER AT LITTLE BIT BETTER TODAY, THE PT REPORTED CONSTIPATION, BOWEL CARE WAS GIVEN INCLUDING A SUPPOSITORY IN WHICH THE PT HAD A SMALL FORMED/TAVO DARK BROWN STOOL A SAMPLE WAS SENT FOR OCCULT BLOOD, THE PTS DAUGHTER IS AT THE BEDSIDE AT THIS TIME, WILL CONTINUE TO MONITOR AND ASSESS FOR CHANGES
[2020-10-19 17:32] LABS: Hematocrit 31.6 % (33.0-51.0); Hemoglobin 10.5 g/dL (11.5-16.0)
[2020-10-19 20:30] LABS: Stool Occult Blood Guaiac 1 Neg (Neg)
[2020-10-20 04:56] LABS: BASOPHILS ABSOLUTE AUTO 0.04 K/mm3 (0.00-0.23); BASOPHILS PERCENT AUTO 1 % (0-2); EOSINOPHILS ABSOLUTE AUTO 0.21 K/mm3 (0.00-0.68); EOSINOPHILS PERCENT AUTO 7 % (0-6); Hematocrit 32.5 % (33.0-51.0); Hemoglobin 10.6 g/dL (11.5-16.0); IMMATURE GRAN PERCENT AUTO 3 % (0-1); LYMPHOCYTES ABSOLUTE AUTO 1.66 K/mm3 (0.84-5.20); LYMPHOCYTES PERCENT AUTO 54 % (21-46); MONOCYTES ABSOLUTE AUTO 0.95 K/mm3 (0.16-1.47); MONOCYTES PERCENT AUTO 31 % (4-13); Mean Corpuscular HGB 28.5 pg (26.0-34.0); Mean Corpuscular HGB Conc 32.6 g/dL (31.5-36.5); Mean Corpuscular Volume 87 fL (80-100); NEUTROPHILS ABSOLUTE AUTO 0.14 K/mm3 (1.96-9.15); NEUTROPHILS PERCENT AUTO 5 % (41-73); Platelet Count 245 K/mm3 (150-400); RDW Coefficient Variation 16.7 % (11.7-14.2); RDW Standard Deviation 50.6 fL (35.1-46.3); Red Blood Cell Count 3.72 M/mm3 (3.80-5.20)
--- NOTE | 2020-10-20 05:22 | NUR ---
SHIFT SUMMARY NO ACUTE CHANGES THIS SHIFT, NO C/O ANY KIND, SLEPT T/O THE NIGHT, WOKE BRIEFLY FOR INCONT BRIEF CHANGES AND AM MEDS THEN QUICKLY RETURNED TO SLEEP, SLEEPING AT THIS TIME, CALL LIGHT IN REACH, WILL CONT TO MONITOR UNTIL REPORT GIVEN TO DAY RN.
--- NOTE | 2020-10-20 15:20 | NUR ---
PT DISCHARGED THE PT VERBALIZED UNDERSTANDING OF THE DC INSTRUCTIONS, THE PT WAS REMINDED TO CALL TO SCHEDULE A FOLLOW UP APPOINTMENT WITH [facility], THE PT WAS TRANSFERED VIA WHEELCHAIR ACCOMPANIED BY THE LINE O SCRIBE OPERATOR AND HER DAUGHTER, THE PT WAS [id number]
== END 2020-10-20 15:05 | disposition home or self-care (01) ==
LOC: ER 16:40 → MEDS 16:41 → ER 20:49 → MEDS 20:49
PROVIDERS: Internal Medicine; Physician Assistant; ADMIT Internal Medicine
PROC: 30233N1 Transfusion of Nonautologous Red Blood Cells into Peripheral Vein, Percutaneous Approach (ICD-10-PCS; principal; 2020-10-18)
DX: D62 Acute posthemorrhagic anemia (principal); R62.7 Adult failure to thrive; N39.0 Urinary tract infection, site not specified; R31.9 Hematuria, unspecified; I10 Essential (primary) hypertension; E78.5 Hyperlipidemia, unspecified; E86.0 Dehydration; K59.00 Constipation, unspecified; E03.9 Hypothyroidism, unspecified; I25.2 Old myocardial infarction; I48.0 Paroxysmal atrial fibrillation; G62.9 Polyneuropathy, unspecified; G89.29 Other chronic pain; E89.0 Postprocedural hypothyroidism; Z66 Do not resuscitate; Z87.891 Personal history of nicotine dependence; Z86.73 Personal history of transient ischemic attack (TIA), and cerebral infarction without residual deficits; Z88.1 Allergy status to other antibiotic agents; Z88.8 Allergy status to other drugs, medicaments and biological substances; Z79.899 Other long term (current) drug therapy
CPT/HCPCS: 36415; 36430; 70450; 71045; 80053; 81001; 82272; 82728; 83540; 83550; 83690; 84484; 85014; 85018; 85025; 85045; 86850; 86900; 86901; 86923; 93005; 93010; 94760; 96372; 97110; 97161; 99285-25; A9270; G0378; J1650; J7030; P9016

== ENCOUNTER 2020-11-18 09:52 | Emergency (ER) | payer OTHER ==
[~2020-11-18] VITALS: Ht 157.5 cm; Wt 59.0 kg
[~2020-11-18 09:52] MED LIST changes: +ARTIFICIAL TEAR15 M2 LEFTEYE; +COQ-10100 MG PO; +Clobetasol Emol15 GM TOP; +Crestor40 MG PO; +FAMO20 PO; +FERSU300 PO; +FISH OIL 1,2001 EAC7 PO; +LEVSOD88 PO; +METO25ER PO; +Magnesium250 MG PO; +PRESERVISION A1 EAC1 PO; +PROBIOTIC1 EA13 PO; +QVAR REDIHALE10.6 G3 INH; +Toviaz4 MG PO; +VITAMIN D31000 UNI1 PO; +Vitamin B-12100 MCG PO; +XARELTO20 MG PO; +[UNRECOGNIZED DRUG - CODE] TOP
[2020-11-18] MEDS ORDERED: CEPH500 PO (14:56)
== END 2020-11-18 15:05 | disposition home or self-care (01) ==
LOC: ER 09:52
DX: M79.662 Pain in left lower leg (principal); I10 Essential (primary) hypertension; E78.5 Hyperlipidemia, unspecified; E03.9 Hypothyroidism, unspecified; Z88.8 Allergy status to other drugs, medicaments and biological substances; Z88.1 Allergy status to other antibiotic agents; Z79.01 Long term (current) use of anticoagulants; Z79.899 Other long term (current) drug therapy; Z79.890 Hormone replacement therapy
CPT/HCPCS: 93971; 99283-25

== ENCOUNTER → 2020-11-19 | Outpatient (CLI) | payer OTHER ==
[~2020-11-19] MED LIST changes: +CEPH500 PO
[2020-11-19 13:43] LABS: Performing Lab SYMBIODX; Test Name FLOW
[2020-11-23 14:29] LABS: Result SEE SEPERATE REPORT
== END | disposition home or self-care (01) ==
LOC: LAB SHORT 13:40 → LAB 13:40
PROVIDERS: Hospitalist
DX: D72.819 Decreased white blood cell count, unspecified (principal); D72.820 Lymphocytosis (symptomatic)
CPT/HCPCS: 36415; 88184; 88185

== ENCOUNTER 2021-01-13 10:37 | Emergency (ER) | payer OTHER ==
[~2021-01-13] VITALS: Ht 157.5 cm; Wt 56.7 kg
[2021-01-13 11:43] LABS: Hematocrit 26.4 % (33.0-51.0); Hemoglobin 8.3 g/dL (11.5-16.0); Mean Corpuscular HGB 31.4 pg (26.0-34.0); Mean Corpuscular HGB Conc 31.4 g/dL (31.5-36.5); Mean Corpuscular Volume 100 fL (80-100); Mean Platelet Volume 9.5 fL (9.1-12.4); Platelet Count 295 K/mm3 (150-400); RDW Coefficient Variation 16.1 % (11.7-14.2); RDW Standard Deviation 57.9 fL (35.1-46.3); Red Blood Cell Count 2.64 M/mm3 (3.80-5.20); White Blood Cell Count 1.53 K/mm3 (4.00-11.30)
[2021-01-13 12:19] LABS: Alanine Aminotransfer (ALT/SGP 18 U/L (12-78); Albumin, Blood 2.9 g/dL (3.4-5.0); Albumin/Globulin Ratio 0.8 (0.8-1.8); Alk Phos 96 U/L (50-136); Anion Gap 6 mmol/L (6-16); Aspartate Aminotrans (AST/SGOT 14 U/L (12-37); Bilirubin, Total 0.6 mg/dL (0.1-1.0); Blood Urea Nitrogen 14 mg/dL (8-24); Bun/Creatinine Ratio 18.6 (12.0-20.0); CO2, Blood 27 mmol/L (21-32); Calcium, Blood 8.9 mg/dL (8.5-10.1); Chloride, Blood 100 mmol/L (98-108); Creatinine, Blood 0.75 mg/dL (0.40-1.00); Globulin, Blood 3.8 g/dL (2.2-4.0); Glomerular Filtration Rate >60 (60-); Glucose, Blood 95 mg/dL (70-99); Sodium, Blood 133 mmol/L (136-145); Total Protein, Blood 6.7 g/dL (6.4-8.2)
[2021-01-13 12:30] LABS: BAND PERCENT MAN 1 % (0-8); BASOPHILS ABSOLUTE MAN 0.01 K/mm3 (0.00-0.23); BASOPHILS PERCENT MAN 1 % (0-2); EOSINOPHILS ABSOLUTE MAN 0.12 K/mm3 (0.00-0.68); EOSINOPHILS PERCENT MAN 8 % (0-6); LYMPHOCYTES ABSOLUTE MAN 1.04 K/mm3 (0.84-5.20); LYMPHOCYTES PERCENT MAN 68 % (21-46); METAMYELOCYTE ABSOLUTE MAN 0.03 K/mm3 (0.00-0.00); METAMYELOCYTE PERCENT MAN 2 % (0-0); MONOCYTES ABSOLUTE MAN 0.07 K/mm3 (0.16-1.47); MONOCYTES PERCENT MAN 5 % (4-13); NEUTROPHILS ABSOLUTE MAN 0.09 K/mm3 (1.96-9.15); OTHER CELL PERCENT MAN 10 % (0-0); SEG NEUTROPHILS PERCENT MAN 5 % (41-73); TOTAL CELLS COUNTED 100
== END 2021-01-13 13:32 | disposition home or self-care (01) ==
LOC: ER 10:37
PROVIDERS: Physician Assistant
DX: D64.9 Anemia, unspecified (principal); R53.83 Other fatigue; I10 Essential (primary) hypertension; E78.5 Hyperlipidemia, unspecified; E03.9 Hypothyroidism, unspecified; Z88.8 Allergy status to other drugs, medicaments and biological substances; Z88.1 Allergy status to other antibiotic agents; Z79.899 Other long term (current) drug therapy
CPT/HCPCS: 36415; 80053; 85025; 86850; 86900; 86901; 86923; 99283

== ENCOUNTER 2021-02-13 11:02 | Emergency (ER) | payer OTHER ==
[~2021-02-13] VITALS: Ht 157.5 cm; Wt 55.3 kg
[2021-02-13] MEDS ORDERED: SPIR25 PO (11:29)
[2021-02-13] MEDS ORDERED: AZIT500 PO (11:29)
[2021-02-13 12:43] LABS: Hematocrit 28.1 % (33.0-51.0); Hemoglobin 8.4 g/dL (11.5-16.0); Mean Corpuscular HGB 30.9 pg (26.0-34.0); Mean Corpuscular HGB Conc 29.9 g/dL (31.5-36.5); Mean Corpuscular Volume 103 fL (80-100); Mean Platelet Volume 9.3 fL (9.1-12.4); Platelet Count 239 K/mm3 (150-400); RDW Coefficient Variation 15.6 % (11.7-14.2); RDW Standard Deviation 58.2 fL (35.1-46.3); Red Blood Cell Count 2.72 M/mm3 (3.80-5.20); White Blood Cell Count 2.01 K/mm3 (4.00-11.30)
[2021-02-13 13:10] LABS: BAND PERCENT MAN 1 % (0-8); BASOPHILS ABSOLUTE MAN 0.02 K/mm3 (0.00-0.23); BASOPHILS PERCENT MAN 1 % (0-2); EOSINOPHILS PERCENT MAN 5 % (0-6); LYMPHOCYTES ABSOLUTE MAN 1.22 K/mm3 (0.84-5.20); LYMPHOCYTES PERCENT MAN 61 % (21-46); MONOCYTES ABSOLUTE MAN 0.54 K/mm3 (0.16-1.47); MONOCYTES PERCENT MAN 27 % (4-13); NEUTROPHILS ABSOLUTE MAN 0.12 K/mm3 (1.96-9.15); SEG NEUTROPHILS PERCENT MAN 5 % (41-73); TOTAL CELLS COUNTED 100
[2021-02-13] MEDS ORDERED: CLOBETASOL EMOL15 G1 TOP (13:16)
[2021-02-13] MEDS ORDERED: TRIDERM28.4 GM TOP (13:16)
[2021-02-13] MEDS ORDERED: ACET500 PO (13:17)
[2021-02-13] MEDS ORDERED: QVAR REDIHALE10.6 G3 INH (13:17)
[2021-02-13] MEDS ORDERED: ONDA4ODT MM (13:17)
[2021-02-13] MEDS ORDERED: ARTIFICIAL TEAR15 M2 LEFTEYE (13:18)
[2021-02-13] MEDS ORDERED: CYCL10 PO (13:18)
[2021-02-13] MEDS ORDERED: Bentyl20 MG PO (13:18)
[2021-02-13] MEDS ORDERED: SILVADENE20 G1 TOP (13:19)
[2021-02-13] MEDS ORDERED: FAMO20 PO (13:19)
[2021-02-13] MEDS ORDERED: NITR.4SL SL (13:19)
[2021-02-13] MEDS ORDERED: Betamethasone D60 ML (13:20)
== END 2021-02-13 15:35 | disposition home or self-care (01) ==
LOC: ER 11:02
PROVIDERS: Physician Assistant
DX: Z00.00 Encounter for general adult medical examination without abnormal findings (principal); I73.9 Peripheral vascular disease, unspecified; D64.9 Anemia, unspecified; I10 Essential (primary) hypertension; J44.9 Chronic obstructive pulmonary disease, unspecified; I48.0 Paroxysmal atrial fibrillation; E03.9 Hypothyroidism, unspecified; E78.5 Hyperlipidemia, unspecified; I25.2 Old myocardial infarction; Z86.73 Personal history of transient ischemic attack (TIA), and cerebral infarction without residual deficits; Z87.891 Personal history of nicotine dependence
CPT/HCPCS: 85025; 96374; 96375; 99284